=== PATIENT | female | born 1975 | race Caucasian/White ===

== ENCOUNTER → 2020-05-14 00:27 | Outpatient (CLI) | payer OTHER, SELFPAY ==
[2020-05-14 21:18] LABS: SARS-CoV-2 RNA PCR Negative
== END ==
PROVIDERS: PCP Family Medicine; Visit Provider Internal Medicine Critical Care Medicine
DX: Z20.822 Contact with and (suspected) exposure to COVID-19 (principal)
CPT/HCPCS: C9803; U0003; U0005

== ENCOUNTER 2020-05-27 14:56 | Outpatient (CLI) | payer OTHER, SELFPAY ==
--- NOTE | ~2020-05-27 | MM_ITS ---
EXAMINATION: MM screening [facility] BI w nathaniel HISTORY: Screening TECHNIQUE: Craniocaudal and mediolateral oblique 3-D tomosynthesis images were obtained and synthetic 2-D images were generated. CAD analysis was submitted and interpreted. COMPARISON: Comparison to multiple prior studies sequentially, with oldest reviewed study dated 11/2017. BREAST PARENCHYMAL COMPOSITION: There are scattered areas of fibroglandular density. FINDINGS: There is no evidence of suspicious mass, calcification, or architectural distortion to sugg est malignancy in either breast. There has been no suspicious interval change. IMPRESSION: 1. No mammographic evidence of malignancy. 2. Recommend routine screening mammography in one year. BI-RADS Category 1: Negative Reviewed, dictated and finalized at location A. 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
== END 2020-05-27 14:57 | disposition home or self-care (01) ==
LOC: ANHIMG 14:58
PROVIDERS: PCP Family Medicine; Visit Provider Physician Assistant
DX: Z12.31 Encounter for screening mammogram for malignant neoplasm of breast (principal)
CPT/HCPCS: 77063; 77067

== ENCOUNTER 2020-06-24 09:18 | Outpatient (CLI) | payer OTHER, SELFPAY ==
--- NOTE | 2020-07-12 17:36 | WPDHOMESLEEP ---
Sleep Study - Home Unattended Date of Study: 06/24/20 Ordering Provider: Bret King PA-C Interpreting Provider: Kelly Álvarez MD Home Sleep Study Type: Apnea Link Air Height: 1.6 m Weight: 76.657 kg Body Mass Index: 29.9 Neck Circumference (inches): 14.25 [place]: 1 Reason for Sleep Study Non-restorative sleep, night time awakenings, hypersomnolence Sleep History Mallory Licea is a 44 year old female with nonrestorative sleep. She wakes at night often, and struggles to return to sleep. Even with sufficient amounts of sleep, she never feels rested. This has been a problem at least since she had her third child 8 years ago. There is a family history of sleep problems with both parents using CPAP. She occasionally snores, occasionally this is loud enough that other people complain about it. She rarely awakens at night with heartburn, belching or coughing. She occasionally awakens at night feeling short of breath. She frequently has trouble sleep with a cold. She occasionally wakes up gasping for breath during the night. She occasionally has breathing problems at night observed by others. She frequently sweats excessively night. She occasionally notices her heart pounding or beating irregularly at night. She rarely falls asleep during the day. She does not fall asleep involuntarily or while driving. She does not have loss of muscle tone was strong emotion. She does not have daytime difficulties due to excessive sleepiness. 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 She does not feel paralyzed on waking or falling asleep. she does not have vivid dreamlike scenes upon awakening or falling asleep. She is not afraid to go to sleep. She frequently has nightmares. She occasionally remembers her dreams. She frequently has racing thoughts. She occasionally feels sad or depressed. She frequently has anxiety. She frequently has muscular tension and notices parts of her body jerking. She occasionally kicks at night. She occasionally has crawling and aching feelings in her legs. She occasionally has leg pain at night. She occasionally has morning jaw pain. She rarely grinds her teeth at night. She occasionally has bothered by pain during the day. She rarely is awakened by pain at night. She occasionally wakes up feeling stiff in the morning with sore achy muscles. She rarely awakens with pain in the neck and spine. She has fatigue, frequent memory problems and frequent morning headaches. Her normal bedtime is 10:00 p.m. falling asleep within 10-15 minutes waking 5 or more times at night to go to the bathroom. If she has difficulty falling asleep she plays a game on her phone. It often takes 15-20 minutes for to to return to sleep. She does not take naps. A short nap is not refreshing. She is drowsy for 3 hours or longer. She feels better in the morning compared to other times of day. Habits: Never smoked tobacco. Caffeine daily. Alcohol : once every few weeks. [facility] Past Medical History Medical History (Updated 07/12/20 @ 19:40 by Kelly Álvarez MD) Asthma Migraine, unspecified, not intractable, without status migrainosus Family History Family History (Updated 07/12/20 @ 19:08 by Kelly Álvarez MD) Grandparent Family history of malignant neoplasm of breast Mother Obstructive sleep apnea Father Obstructive sleep apnea Other Hypertension Social History Social History Smoking status: Never smoker Alcohol intake: current Medications Home Medications Medication Instructions Recorded Confirmed Type hydrocortisone acetate [Anusol-HC] 25 mg RECTAL BID #12 each 03/18/19 06/27/20 Rx tramadol 50 mg tablet 50 mg PO Q6H PRN #30 tablet 11/27/19 06/27/20 Rx sumatriptan succinate 100 mg tablet See Rx Instructions PO .COMPLEX #9 01/09/20 06/27/20 Rx tablet topiramate 25 mg tablet 50 mg PO BID #120 tablet 05/20/20 06/27/20 Rx
[2020-07-12 17:39] VITALS: BMI 29.9
== END 2020-06-24 09:19 | disposition home or self-care (01) ==
LOC: ANHCSM 09:18
PROVIDERS: PCP Family Medicine; Visit Provider Physician Assistant
DX: G47.10 Hypersomnia, unspecified (principal); Z79.899 Other long term (current) drug therapy; R06.83 Snoring; R53.83 Other fatigue
CPT/HCPCS: 95806

== ENCOUNTER 2020-06-27 15:44 | Outpatient (CLI) | payer OTHER, SELFPAY ==
--- NOTE | ~2020-06-27 | XR_ITS ---
EXAMINATION: XR chest 2V 06/27/2020 15:57 INDICATION: Shortness of breath and chest pain. Asthma. PROCEDURE: 2 view chest COMPARISON: No prior studies for comparison. FINDINGS: Left perihilar infiltrates, suspicious for pneumonia. The cardiomediastinal silhouette is w ithin normal limits. There are no pleural effusions. There is no pneumothorax suspected. IMPRESSION: 1: Subtle left perihilar infiltrates, suspicious for pneumonia.. Reviewed, dictated and finalized at location B.
== END 2020-06-27 15:45 | disposition home or self-care (01) ==
LOC: ANHIMG 15:49
PROVIDERS: PCP Family Medicine; Visit Provider Physician Assistant
DX: R06.02 Shortness of breath (principal)
CPT/HCPCS: 71046

== ENCOUNTER 2020-07-03 12:00 | Outpatient (CLI) | payer OTHER, SELFPAY ==
--- NOTE | ~2020-07-03 | XR_ITS ---
XR chest 2V DATE: 07/03/2020 12:18 INDICATION: Increased shortness of breath. Pneumonia. TECHNIQUE: PA and lateral views COMPARISON: 06/27/2020 PA and lateral chest FINDINGS: Normal heart size. No hilar or mediastinal enlargement. No pulmonary infiltrate or consolid ation, pleural effusion or pulmonary vascular congestion or pneumothorax. Mild thoracic dextroscolios is. IMPRESSION: No active cardiopulmonary disease Reviewed, dictated and finalized at location A.
== END 2020-07-03 12:01 | disposition home or self-care (01) ==
PROVIDERS: PCP Family Medicine; Visit Provider Family Medicine
DX: J18.9 Pneumonia, unspecified organism (principal)
CPT/HCPCS: 71046

== ENCOUNTER 2020-07-16 14:35 | Emergency (ER) | payer OTHER, SELFPAY ==
--- NOTE | ~2020-07-16 | XR_ITS ---
EXAMINATION: XR wrist RT min 3V DATE: 07/16/2020 15:16 INDICATION: Right wrist pain. Fall 2 weeks ago. TECHNIQUE: 4 views of right wrist were obtained. COMPARISON: None. FINDINGS: Bone alignment is normal. No fracture. Lunate is type II. There are subchondral cysts in th e proximal hamate. IMPRESSION: 1. 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 Reviewed, dictated and finalized at location B.
[2020-07-16 14:45] VITALS: BP 120/81; PULSE 68; RESP 16; TEMP 36.4; O2SAT 99
--- NOTE | 2020-07-16 14:49 | ED.UPPEXIN ---
HPI - Extremity Injury (Upper) General Chief Complaint: Extremity Injury, Upper Stated Complaint: . Time Seen by Provider: 07/16/20 15:03 Source: patient and RN notes reviewed Mode of arrival: ambulatory Limitations: no limitations History of Present Illness HPI narrative: 44-year-old female presents concern for right wrist pain. Reports 2 weeks ago she fell injuring her wrist below the fifth digit. Reports she is been using ice and Tylenol with little relief. Reports pain with range of motion, palpation. She denies swelling, deformity, decreased range of motion, decreased pain, decreased sensation.. Reports pain has not been improving over the last 2 weeks Related Data Home Medications Medication Instructions Recorded Confirmed topiramate 50 mg PO DAILY 07/16/20 07/16/20 Allergies Allergy/AdvReac Type Severity Reaction Status Date / Time hydrocodone Allergy Mild Nausea and Verified 07/16/20 14:59 Vomiting sulfamethoxazole Allergy Mild Rash Verified 07/16/20 14:59 trimethoprim Allergy Mild Rash Verified 07/16/20 14:59 Penicillins Allergy Unknown Rash Verified 07/16/20 14:59 Sulfa (Sulfonamide Allergy Unknown Rash Verified 07/16/20 14:59 Antibiotics) sulfamethizole Allergy Unknown Rash Verified 07/16/20 14:59 Review of Systems Review of Systems: Narrative: CONSTITUTIONAL: Denies malaise, chills, sweats, or fever. SKIN: Denies lacerations, abrasions MUSCULOSKELETAL: Reports right wrist pain NEUROLOGIC: Denies numbness, weakness All systems reviewed & are unremarkable except as noted in HPI and below PMFSH Past Medical History Medical History (Updated 07/16/20 @ 15:22 by Lisa Diamond NP) Asthma Migraine, unspecified, not intractable, without status migrainosus Family History Family History (Updated 07/12/20 @ 19:08 by Kelly Álvarez MD) Grandparent Family history of malignant neoplasm of breast Mother Obstructive sleep apnea Father Obstructive sleep apnea Other Hypertension Social History Social History Smoking status: Never smoker Alcohol intake: current Comments At time of signature, agree with nursing past medical, surgical, social and family history. There is no relevant family history pertinent to the presenting complaint Exam Narrative: Exam Narrative: GENERAL: Well-appearing, well-nourished, and in no acute distress. HEAD: Normocephalic, atraumatic. EYES: PERRLA, conjunctivae clear NECK: Supple. CHEST: Speaks in full sentences. No respiratory distress. HEART: Regular rate and rhythm. Normal and equal peripheral pulses. EXTREMITIES: Right wrist, hand, digits have normal strength and sensation, normal range of motion. No edema or ecchymosis. 5/5 strength with wrist and digit flexion and extension. Normal sensation with sensitivity to light touch and pain. Mild lateral wrist tenderness. No open wounds, no skin tenting, no devitalized tissue or atrophy, no trophic changes, no obvious deformity, alignment normal, nearby joints and structures intact. Distal pulses palpable and equal bilaterally, skin warm, dry, pink. Capillary refill less than 3 seconds. SKIN: Warm, dry, no rash. NEURO: Alert and oriented x3. PSYCH: Normal mood and affect Course Course Emergency Course: Patient is aware of diagnosis, understands and agrees to treatment plan. Anticipatory guidance given. Patient agrees to follow-up as directed and is aware of reasons to seek care at the emergency department. Portions of this record may have been created with voice recognition software Vital Signs Vital signs: Vital Signs Temperature 97.6 F 07/16/20 14:45 Pulse Rate 68 07/16/20 14:45 Respiratory Rate 16 07/16/20 14:45 Blood Pressure 120/81 07/16/20 14:45 Pulse Oximetry 99 07/16/20 14:45 Temperature 97.6 F 07/16/20 14:45 Pulse Rate 68 07/16/20 14:45 Respiratory Rate 16 07/16/20 14:45 Blood Pressure 120/81
== END 2020-07-16 15:30 | disposition home or self-care (01) ==
PROVIDERS: Emergency Provider Nurse Practitioner; PCP Family Medicine
DX: M25.531 Pain in right wrist (principal); J45.909 Unspecified asthma, uncomplicated
CPT/HCPCS: 73110; 99213; G0463

== ENCOUNTER 2020-08-29 10:37 | Outpatient (CLI) | payer OTHER, SELFPAY ==
--- NOTE | ~2020-08-29 | XR_ITS ---
EXAMINATION: XR chest 2V EXAM DATE: 08/29/2020 10:51 INDICATION: Shortness of breath, recent pneumonia. History of asthma. TECHNIQUE: Frontal and lateral projections of the chest obtained and reviewed. Comparison is made to prior examination from 07/03/2020. FINDINGS: The lungs are clear. There are no pleural effusions. The cardiomediastinal silhouette is within normal limits. There is no pneumothorax suspected. The bones and soft tissues are unremarkab le. IMPRESSION: Normal chest x-ray exam. Reviewed, dictated and finalized at location B. IMPRESSION: Normal chest x-ray exam.
== END 2020-08-29 10:38 | disposition home or self-care (01) ==
LOC: ANHIMG 10:41
PROVIDERS: PCP Family Medicine; Visit Provider Physician Assistant
DX: R06.02 Shortness of breath (principal)
CPT/HCPCS: 71046

== ENCOUNTER 2021-04-12 10:32 | Emergency (ER) | payer OTHER, SELFPAY ==
--- NOTE | ~2021-04-12 | XR_ITS ---
EXAMINATION: XR chest 1V portable 04/12/2021 11:21 INDICATION: Shortness of breath and cough. Covid. PROCEDURE: AP portable chest COMPARISON: No prior studies for comparison. FINDINGS: The lungs are clear. The cardiomediastinal silhouette is within normal limits. There are no pleural effusions. There is no pneumothorax suspected. IMPRESSION: 1: NO ACUTE CARDIOPULMONARY DISEASE. Reviewed, dictated and finalized at location A. 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
[2021-04-12 10:45] VITALS: BP 119/74; PULSE 78; RESP 20; TEMP 36.7; O2SAT 98
--- NOTE | 2021-04-12 11:07 | ED.SOB ---
HPI - SOB/Dyspnea General Chief Complaint: Shortness of Breath/Dyspnea Stated Complaint: covid + 12 days ago, SOB Time Seen by Provider: 04/12/21 11:05 Source: patient Mode of arrival: ambulatory Limitations: no limitations History of Present Illness HPI Narrative: Patient is a 45-year-old female complaining of shortness of breath, accompanied by cough, productive, clear sputum that started today. Patient states that she tested positive for COVID 12 days ago, with symptoms of cough, shortness of breath, body aches, fever, was feeling better this past week, but today her shortness of breath and cough became worse. Patient denies any chest pain, abdominal pain, nausea, vomiting, diarrhea, diaphoresis, fever or chills. Related Data Home Medications Medication Instructions Recorded Confirmed topiramate 50 mg PO DAILY 07/16/20 09/02/20 Allergies Allergy/AdvReac Type Severity Reaction Status Date / Time hydrocodone Allergy Mild Nausea and Verified 09/02/20 09:58 Vomiting sulfamethoxazole Allergy Mild Rash Verified 09/02/20 09:58 trimethoprim Allergy Mild Rash Verified 09/02/20 09:58 Penicillins Allergy Unknown Rash Verified 09/02/20 09:58 Sulfa (Sulfonamide Allergy Unknown Rash Verified 09/02/20 09:58 Antibiotics) sulfamethizole Allergy Unknown Rash Verified 09/02/20 09:58 Review of Systems Review of Systems: All systems reviewed & are unremarkable except as noted in HPI and below Constitutional: Constitutional: Denies body ache(s), Denies chills, Denies excessive sweating, Denies fatigue, Denies fever(s), Denies headache(s), Denies lethargy, Denies malaise, Denies weakness and Denies weight loss Eyes: Eyes: Denies blurry vision, Denies change in vision and Denies loss of vision ENT: Denies dizziness, Denies ear discharge, Denies headache(s), Denies lip swelling, Denies epistaxis, Denies nasal congestion, Denies neck pain, Denies throat swelling and Denies tongue swelling Cardiovascular: Cardiovascular: Denies chest pain, Denies chest pain at rest, Denies chest pain with activity, Denies diaphoresis, Denies rapid heart rate, Denies edema, Denies irregular heart rhythm, Denies lightheadedness and Denies palpitations Respiratory: Respiratory: Denies chest congestion and Denies hemoptysis Gastrointestinal: Gastrointestinal: Denies abdominal pain, Denies melena, Denies hematochezia, Denies diarrhea, Denies nausea, Denies vomiting and Denies hematemesis Musculoskeletal: Musculoskeletal: Denies abnormal gait, Denies deformity, Denies joint swelling, Denies limited range of motion, Denies neck pain and Denies numbness Neurologic: Denies Abnormal speech present, Denies abnormal gait, Denies confusion, Denies dizziness, Denies headache(s), Denies focal weakness, Denies loss of vision, Denies numbness, Denies Other visual disturbances, Denies Sensory deficit (Neuro) and Denies weakness Psychiatric: Psychiatric: Denies confusion, Denies depression, Denies auditory hallucinations, Denies homicidal ideation and Denies suicidal ideation Endocrine: Endocrine: Denies cold intolerance, Denies excessive sweating, Denies fatigue, Denies heat intolerance and Denies palpitations Hematologic/Lymphatic: Hematologic/Lymphatic: Denies easy bleeding and Denies easy bruising Allergic/Immunologic: Allergic/Immunologic: Denies lip swelling, Denies throat swelling and Denies tongue swelling PMFSH Past Medical History Medical History Asthma Migraine, unspecified, not intractable, without status migrainosus Family History Family History Grandparent Family history of malignant neoplasm of breast Mother Obstructive sleep apnea Father Obstructive sleep apnea Other Hypertension Social History Social History Alcohol intake: current Exam Const: General: cooperative, heal
--- NOTE | 2021-04-12 11:11 | ECG_ITS ---
Measurements Intervals [place] Rate: 69 P: 56 [place]: 199 QRS: 54 QRSD: 94 T: 55 QT: 364 QTc: 390 Interpretive Statements SINUS RHYTHM INCOMPLETE RIGHT BUNDLE BRANCH BLOCK LOW QRS VOLTAGE IN PRECORDIAL LEADS BORDERLINE ECG Electronically Signed On 04-12-2021 14:13:44 APPLIQUER ZIGZAG by Manuel Jones D.O.
[2021-04-12 11:37] LABS: Basophils Percent Auto 0.8 % (0.2-1.2); Eosinophils Absolute Auto 0.1 K/mm3 (0-0.3); Eosinophils Percent Auto 2.7 % (0-4.4); Hematocrit 42.2 % (37.0-47.0); Hemoglobin 14.5 g/dL (12.0-15.0); Immature Granulocyte Absolute 0.02 K/mm3 (0.00-0.031); Immature Granulocyte Percent A 0.4 % (0-0.5); Lymphocytes Absolute Auto 2.42 K/mm3 (0.9-3.2); Lymphocytes Percent Auto 47.1 % (18.3-44.2); Mean Corpuscular HGB Conc 34.4 g/dl (32-36); Mean Corpuscular Hemoglobin 30.5 pg (26-34); Mean Corpuscular Volume 88.7 fl (80-100); Mean Platelet Volume 9.7 fl (7.4-10.4); Monocytes Absolute Auto 0.4 K/mm3 (0.1-0.6); Monocytes Percent Auto 8.2 % (2.6-8.5); Neutrophils Absolute Auto 2.1 K/mm3 (1.3-6.7); Neutrophils Percent Auto 40.8 % (45.5-73.1); Platelet Count Result 348 k/mm3 (150-375); Red Blood Count 4.76 M/mm3 (4.2-5.4); Red Cell Distribution Width 12.5 % (11.5-14.5); White Blood Count 5.1 K/mm3 (4.5-10.0)
[2021-04-12 11:49] LABS: Alanine Aminotransferase 40 U/L (4-35); Albumin Level 4.5 g/dL (3.5-5.1); Alkaline Phosphatase 78 U/L (38-126); Anion Gap 8 mmol/L (8-16); Aspartate Amino Transferase 32 U/L (14-36); Bilirubin,Total 0.3 mg/dL (0.2-1.3); Blood Urea Nitrogen 16 mg/dL (7-17); Calcium 9.1 mg/dL (8.4-10.2); Carbon Dioxide 24 mmol/L (22-30); Chloride 108 mmol/L (98-107); Estimated CRCL calculation 82 ml/min; Estimated Glomerular Filt Rate > 60; Glucose 89 mg/dL (65-110); Potassium 4.2 mmol/L (3.4-5.0); Sodium 140 mmol/L (137-145)
[2021-04-12 12:02] LABS: D Dimer 0.27 ug/mL (<0.48); NT Pro B Type Natriuretic Pept 124 pg/mL (5-100); Troponin I < 0.012 ng/mL (0.000-0.034)
[2021-04-12 14:15] VITALS: BP 132/74; PULSE 80; RESP 16; O2SAT 99
== END 2021-04-12 14:15 | disposition home or self-care (01) ==
PROVIDERS: Emergency Provider Emergency Medicine; PCP Family Medicine
DX: U07.1 COVID-19 (principal); J45.909 Unspecified asthma, uncomplicated; I45.10 Unspecified right bundle-branch block
CPT/HCPCS: 36415; 71045; 80053; 83880; 84484; 85025; 85380; 93005; 99284

== ENCOUNTER 2021-09-02 14:52 | Outpatient (CLI) | payer OTHER, SELFPAY ==
--- NOTE | ~2021-09-02 | MM_ITS ---
EXAMINATION: MM screening [facility] BI w nathaniel HISTORY: Screening mammogram TECHNIQUE: Craniocaudal and mediolateral oblique 3-D tomosynthesis images were obtained and synthetic 2-D images were generated. CAD analysis was submitted and interpreted. COMPARISON: 05/27/2020, 09/14/2018, 09/04/2017 BREAST PARENCHYMAL COMPOSITION: The breasts are almost entirely fatty. FINDINGS: There is no suspicious mass, calcification, or architectural distortion to suggest malignan cy in either breast. There has been no suspicious interval change. IMPRESSION: 1. No mammographic evidence of malignancy. 2. Recommend routine screening mammography in one year. BI-RADS Category 1: Negative Reviewed, dictated and finalized at location A.
== END 2021-09-02 14:53 | disposition home or self-care (01) ==
PROVIDERS: PCP Family Medicine; Visit Provider Obstetrics & Gynecology Gynecology
DX: Z12.31 Encounter for screening mammogram for malignant neoplasm of breast (principal)
CPT/HCPCS: 77063; 77067

== ENCOUNTER 2021-12-13 08:43 | Emergency (ER) | payer OTHER, SELFPAY ==
[2021-12-13 08:50] VITALS: BP 142/61; PULSE 87; RESP 16; TEMP 36.7; O2SAT 98
--- NOTE | 2021-12-13 08:52 | ED.URI ---
HPI - URI/Sore Throat General Stated Complaint: Sore Throat, Cough Time Seen by Provider: 12/13/21 08:55 Source: patient Mode of arrival: ambulatory Limitations: no limitations History of Present Illness HPI Narrative: Ms. Licea is a 45-year-old female patient presenting to the clinic today with complaints of runny nose, productive cough, sore throat, congestion, and losing voice x1 week. She reports that all of her family members are having the same illness. She has tested twice for COVID and has been negative both times. She does have a history of asthma. Reports having a productive cough with some yellowish-brown phlegm. She denies any fever or chills. She denies being a smoker. She denies being short of breath or having any chest pain. Related Data Allergies Allergy/AdvReac Type Severity Reaction Status Date / Time hydrocodone Allergy Mild Nausea and Verified 11/10/21 13:05 Vomiting sulfamethoxazole Allergy Mild Rash Verified 11/10/21 13:05 trimethoprim Allergy Mild Rash Verified 11/10/21 13:05 Penicillins Allergy Unknown Rash Verified 11/10/21 13:05 Sulfa (Sulfonamide Allergy Unknown Rash Verified 11/10/21 13:05 Antibiotics) sulfamethizole Allergy Unknown Rash Verified 11/10/21 13:05 Review of Systems Review of Systems: Pertinent positives per HPI. Patient denies any fever, chills, rash, headache, visual changes, dizziness, cough, runny nose, sore throat, shortness of breath, chest pain, palpitations, nausea, vomiting, diarrhea, constipation, abdominal pain, or any urinary issues. [facility] Past Medical History Medical History Asthma delivery delivered Migraine, unspecified, not intractable, without status migrainosus Surgical History Surgical History History of ankle surgery Family History Family History Grandparent Family history of malignant neoplasm of breast Mother Obstructive sleep apnea Father Obstructive sleep apnea Other Hypertension Social History Social History Smoking status: Never smoker Second hand tobacco smoke exposure: No Alcohol intake: current Drinks per week: 1 Substance use type: does not use Comments At the time of my signature, I reviewed and agree with the nursing past medical, surgical, social, and family history. There is no relevant family history pertinent to the patient complaint. Exam Narrative: General: Well-developed, overweight, in no apparent distress Head: Normocephalic, atraumatic Eyes: Pupils equally round and reactive to light bilaterally, EOM intact, sclera and conjunctive clear, no discharge, lids normal Ears: TMs intact and clear, ear canals clear, no drainage, grossly hearing normal. Nose: Nares patent, clear nasal discharge, mild inflammation, no sinus tenderness. Mouth: Oropharynx without lesions or masses, good dentition, MMM. Postnasal drip Neck: Supple, trachea midline, no enlargement of anterior or posterior cervical nodes, no thyroid masses or goiter palpable. Cardio: Regular rate and rhythm, s1 and s2 normal, no murmur appreciated. Resp: Clear to auscultation bilaterally anteriorly and posteriorly, no rhonchi, rales, wheezing or rubs Course Course Emergency Course: Portions of this record may have been created with voice recognition software. Level of Care: Express Care Visit Vital Signs Vital signs: Vital Signs Temperature 36.7 C 12/13/21 08:50 Pulse Rate 87 12/13/21 08:50 Respiratory Rate 16 12/13/21 08:50 Blood Pressure 142/61 H 12/13/21 08:50 Pulse Oximetry 98 12/13/21 08:50 Oxygen Delivery Room Air 12/13/21 08:50 Temperature 36.7 C 12/13/21 08:50 Pulse Rate 87 12/13/21 08:50 Respiratory Rate 16 12/13/21 08:50 Blood Pres
== END 2021-12-13 09:02 | disposition home or self-care (01) ==
PROVIDERS: Emergency Provider Nurse Practitioner Family; PCP Emergency Medicine
DX: J06.9 Acute upper respiratory infection, unspecified (principal); J45.909 Unspecified asthma, uncomplicated
CPT/HCPCS: 99213; G0463

== ENCOUNTER 2022-03-11 01:58 | Day surgery (SDC) | payer OTHER, SELFPAY ==
[2022-02-27 14:22] VITALS: BMI 35.5
--- NOTE | 2022-03-10 17:08 | PM.HPGS ---
History of Present Illness History of Present Illness Consent: Risks, benefits, and alternatives have been discussed and questions answered. Patient agrees to proceed with procedure. Chief complaint: neoplasm screening Narrative: Mallory Licea is a 46 year old female was referred for colon cancer screening. Review of Systems Review of Systems: All systems reviewed & are unremarkable except as noted in HPI and below PMFSH Past Medical History Medical History Asthma delivery delivered Migraine, unspecified, not intractable, without status migrainosus Surgical History Surgical History History of ankle surgery Family History Family History Grandparent Family history of malignant neoplasm of breast Mother Obstructive sleep apnea Father Obstructive sleep apnea Other Hypertension Social History Social History Smoking status: Never smoker Second hand tobacco smoke exposure: No Alcohol intake: current Drinks per week: 1 Alcohol use details: 2x monthly Substance use type: does not use Living arrangements: with family Spiritual care concerns: No Meds Home Medications and Allergies Home Medications Medication Instructions Recorded Confirmed Type sumatriptan succinate 100 mg tablet 100 mg PO DIRECTED PRN Migraine 12/13/21 03/11/22 History Headache topiramate 50 mg tablet 50 mg PO BID #180 tabs 01/07/22 03/11/22 Rx albuterol sulfate 90 mcg/actuation 2 inh inhalation Q4H PRN Shortness 02/27/22 03/11/22 History aerosol inhaler (ProAir HFA) Of Breath mometasone-formoterol HFA 100 2 puff inhalation Q12H PRN other 02/27/22 03/11/22 History mcg-5 mcg/actuation aerosol inhaler (Dulera) Allergies Allergy/AdvReac Type Severity Reaction Status Date / Time sulfamethoxazole Allergy Mild Rash Verified 03/11/22 09:14 trimethoprim Allergy Mild Rash Verified 03/11/22 09:14 Penicillins Allergy Unknown Rash Verified 03/11/22 09:14 Sulfa (Sulfonamide Allergy Unknown Rash Verified 03/11/22 09:14 Antibiotics) sulfamethizole Allergy Unknown Rash Verified 03/11/22 09:14 Exam Const: General: alert Orientation/consciousness: patient oriented x3 Resp: Auscultation: clear to auscultation bilaterally Cardio: Rhythm: regular rhythm GI: GI Palp: Yes Soft to palpation and No Tenderness to palpation present (GI) Neuro: General: patient oriented x3 Assessment and Plan Assessment and plan (1) Colon cancer screening: Code(s): Z12.11 - Encounter for screening for malignant neoplasm of colon Status: Acute Assessment and Plan: Colonoscopy with possible biopsy or polypectomy or cautery or injection of substances.
[2022-03-11 09:19] VITALS: BP 140/64; PULSE 83; RESP 18; TEMP 36.1; O2SAT 100; BMI 38.4
[2022-03-11] MEDS: LACTATED RINGERS 1,000 ML 150 ML IV CONT (09:31)
--- NOTE | 2022-03-11 09:34 | WPDANESEPPF ---
Anes - Initial Pre Proc Eval Procedure: Operation Date: 03/11/22 10:30 Proposed Procedures p Screening Colonoscopy - Pool Miller MD Date/Time: 03/11/22 09:34 Surgeon: Pool Miller MD Pre Op Diagnosis: neoplasm screening Patient Data Age: 46 Gender: F Height: 1.6 m Weight: 98.4 kg Last Vital Signs Temp 97.0 F L 03/11/22 09:19 Pulse 83 03/11/22 09:19 Resp 18 03/11/22 09:19 BP 140/64 03/11/22 09:19 Pulse Ox 100 03/11/22 09:19 O2 Del Method Room Air 03/11/22 09:19 Allergies Allergy/AdvReac Type Severity Reaction Status Date / Time sulfamethoxazole Allergy Mild Rash Verified 03/11/22 09:14 trimethoprim Allergy Mild Rash Verified 03/11/22 09:14 Penicillins Allergy Unknown Rash Verified 03/11/22 09:14 Sulfa (Sulfonamide Allergy Unknown Rash Verified 03/11/22 09:14 Antibiotics) sulfamethizole Allergy Unknown Rash Verified 03/11/22 09:14 Home Medications Medication Instructions Recorded Confirmed Type sumatriptan succinate 100 mg tablet 100 mg PO DIRECTED PRN Migraine 12/13/21 03/11/22 History Headache topiramate 50 mg tablet 50 mg PO BID #180 tabs 01/07/22 03/11/22 Rx albuterol sulfate 90 mcg/actuation 2 inh inhalation Q4H PRN Shortness 02/27/22 03/11/22 History aerosol inhaler (ProAir HFA) Of Breath mometasone-formoterol HFA 100 2 puff inhalation Q12H PRN other 02/27/22 03/11/22 History mcg-5 mcg/actuation aerosol inhaler (Dulera) Patient hx anesthesia problems: none Family hx anesthesia problems: none Results Review: All pre-operative results and documents have been reviewed as part of the pre-operative evaluation. [facility] Past Medical History Medical History Asthma delivery delivered Migraine, unspecified, not intractable, without status migrainosus Surgical History Surgical History History of ankle surgery Family History Family History Grandparent Family history of malignant neoplasm of breast Mother Obstructive sleep apnea Father Obstructive sleep apnea Other Hypertension Social History Social History Smoking status: Never smoker Second hand tobacco smoke exposure: No Alcohol intake: current Drinks per week: 1 Alcohol use details: 2x monthly Substance use type: does not use Living arrangements: with family Spiritual care concerns: No Anes - Eval Final PreProcedure Day of Procedure 03/11/22 09:34 Patient weight: obese Heart: regular rate and rhythm Lungs: clear to auscultation Airway: Mallampati scale class II Neurological: alert and oriented Last oral intake: >/= 8 hours ASA classification: II Emergent: no Anesthetic plan: proceed Anesthesia type and monitoring: general GIVS and standard monitoring Results Review: All pre-operative results and documents have been reviewed as part of the pre-operative evaluation. Informed Consent: The patient's anesthetic plan and its attendant risks and benefits were discussed with the patient/family/POA. Questions were solicited and answers provided to the satisfaction of the patient/family/POA.
[2022-03-11 10:15] VITALS: BP 146/79; PULSE 68; RESP 22; O2SAT 97
[2022-03-11 10:25] VITALS: BP 119/60; PULSE 75; RESP 24; O2SAT 97
[2022-03-11 10:35] VITALS: BP 116/74; PULSE 68; RESP 21; O2SAT 100
== END 2022-03-11 10:41 | disposition home or self-care (01) ==
PROVIDERS: PCP Emergency Medicine; Visit Provider Internal Medicine Gastroenterology
PROC: 0DJD8ZZ Inspection of Lower Intestinal Tract, Via Natural or Artificial Opening Endoscopic (ICD-10-PCS; CPT 45378; principal; 2022-03-11 10:30)
DX: Z12.11 Encounter for screening for malignant neoplasm of colon (principal); J45.909 Unspecified asthma, uncomplicated; Z79.51 Long term (current) use of inhaled steroids; E66.9 Obesity, unspecified; Z68.38 Body mass index [BMI] 38.0-38.9, adult
CPT/HCPCS: 45378; J2704; J7120

== ENCOUNTER 2022-07-21 08:01 | Outpatient (CLI) | payer OTHER, SELFPAY ==
--- NOTE | 2022-07-31 17:27 | WPDHOMESLEEP ---
Sleep Study - Home Unattended Date of Study: 07/21/22 Ordering Provider: Amy Mason DO Interpreting Provider: Kelly Álvarez MD Home Sleep Study Type: Apnea Link Air Height: 1.6 m Weight: 97.976 kg Body Mass Index: 38.2 Neck Circumference (inches): 16 [place]: 7 PMFSH Past Medical History Medical History Asthma delivery delivered Migraine, unspecified, not intractable, without status migrainosus Surgical History Surgical History History of ankle surgery Family History Family History Grandparent Family history of malignant neoplasm of breast Mother Obstructive sleep apnea Father Obstructive sleep apnea Other Hypertension Social History Social History Smoking status: Never smoker Second hand tobacco smoke exposure: No Alcohol intake: current Drinks per week: 1 Alcohol use details: 2x monthly Substance use type: does not use Lack of Transportation: No Lack of Food: Never True Current Housing: I Have Housing Concerned About Future Housing: No Difficulty Paying Gas/Electric Bills: No Difficulty Paying for Meds: No Currently Unemployed: No Education: Bachelor's Degree Difficulty w/ Childcare or Family Care: No Living arrangements: with family Spiritual care concerns: No Medications Home Medications Medication Instructions Recorded Confirmed Type albuterol sulfate 90 mcg/actuation 2 inh inhalation Q4H PRN Shortness 02/27/22 06/17/22 History aerosol inhaler (ProAir HFA) Of Breath mometasone-formoterol HFA 100 2 puff inhalation Q12H PRN other 02/27/22 06/17/22 History mcg-5 mcg/actuation aerosol inhaler (Dulera) eszopiclone 3 mg tablet (Lunesta) 3 mg PO QHS #1 tablet 06/17/22 06/17/22 Rx Assessment and Plan Data The data obtained during this sleep study is adequate for interpretation. Certification This sleep study has been reviewed by a board certified sleep medicine physician.
--- NOTE | 2022-08-11 18:57 | WPDHOMESLEEP ---
Sleep Study - Home Unattended Date of Study: 07/21/22 Ordering Provider: Amy Mason DO Interpreting Provider: Amy Mason DO Home Sleep Study Type: Apnea Link Air Height: 1.6 m Weight: 97.976 kg Body Mass Index: 38.2 Neck Circumference (inches): 16 [place]: 7 Reason for Sleep Study Snoring, unrefreshing sleep, nocturnal gasping Sleep History The patient is a 46-year-old female with asthma and migraines that had a sleep study ordered for evaluation of sleep apnea. The patient had a home sleep test a few years ago that was negative. Both of her parents have severe sleep apnea. The patient occasionally awakens from sleep short of breath. She occasionally awakens at night with heartburn, belching or cough. He frequently snores and is frequently loud enough others complain. He constantly has trouble breathing when she has a cold. He occasionally wakes up gasping for air throughout the night. He occasionally has breathing problems at night observed by herself or others. She rarely sweats excessively at night. She denies having heart palpitations or irregular heartbeats during the night. She denies falling asleep during the day and while driving. She denies sleep paralysis and cataplexy. She occasionally has trouble at school or work due to sleepiness. She frequently experiences vivid dreamlike scenes upon awakening or falling asleep. She denies feeling afraid of going to sleep. She frequently has nightmares and frequently remembers her dreams. She constantly has thoughts racing through the back of her mind. She occasionally feels sad or depressed. She frequently has anxiety. She frequently has muscular tension. He frequently notices parts of her body jerk. She rarely kicks during the night. She frequently has crawling and aching feelings in her legs and frequently has leg pain during the night. She frequently grinds her teeth during sleep and frequently has morning jaw pain. She is frequently bothered by pain during the day but rarely awakened by pain during the night. She frequently wakes up feeling stiff in the morning. She occasionally wakes up with sore or achy muscles. She frequently wakes up with pain in the neck, spine or of the joints. She goes to bed at 10:30 p.m. on weekdays and 11:00 p.m. on the weekends. It takes her 20-30 minutes to fall asleep. She wakes up through 4 times throughout the night to urinate mail listen to a body cast. He can take her 15 minutes up to several hours to fall back asleep. He wakes up at 6:30 a.m. on weekdays and at 7:00 a.m. on the weekends. She typically gets 5-6 hours of sleep per night. She will stay in bed for 20-30 minutes after waking up in the morning. He currently lives with her and 3 children. She does not consume any caffeinated beverages within 2 hours of bedtime. She will occasionally engage in physical exercise before bedtime. She will watch television before falling asleep. She will occasionally take naps in the afternoon or the evening but they are not refreshing. She consumes 32-48 oz of caffeinated beverage per day. She will have 1 Mabel per month. She denies tobacco and recreational drug use. [facility] Past Medical History Medical History Asthma delivery delivered Migraine, unspecified, not intractable, without status migrainosus Surgical History Surgical History History of ankle surgery Family History Family History Grandparent Family history of malignant neoplasm of breast Mother Obstructive sleep apnea Father Obstructive sleep apnea Other Hypertension Social History Social History Smoking status: Never smoker Second hand tobacco smoke exposure: No Alcohol intake: current
[2022-08-11 18:59] VITALS: BMI 38.2
== END 2022-07-22 10:33 | disposition home or self-care (01) ==
LOC: ANHCSM 08:02
PROVIDERS: PCP Emergency Medicine; Visit Provider Family Medicine
DX: G47.10 Hypersomnia, unspecified (principal); G47.9 Sleep disorder, unspecified; G25.81 Restless legs syndrome; J45.909 Unspecified asthma, uncomplicated
CPT/HCPCS: 95806

== ENCOUNTER 2022-08-19 08:31 | Outpatient (CLI) | payer OTHER, SELFPAY ==
[2022-08-19 13:10] LABS: Basophils Percent Auto 0.6 % (0.2-1.2); Eosinophils Absolute Auto 0.3 K/mm3 (0-0.3); Eosinophils Percent Auto 4.8 % (0-4.4); Hematocrit 44.8 % (37.0-47.0); Hemoglobin 14.6 g/dL (12.0-15.0); Immature Granulocyte Absolute 0.02 K/mm3 (0.00-0.031); Immature Granulocyte Percent A 0.3 % (0-0.5); Lymphocytes Absolute Auto 2.67 K/mm3 (0.9-3.2); Lymphocytes Percent Auto 42.7 % (18.3-44.2); Mean Corpuscular HGB Conc 32.6 g/dl (32-36); Mean Corpuscular Hemoglobin 28.9 pg (26-34); Mean Corpuscular Volume 88.5 fl (80-100); Mean Platelet Volume 10.3 fl (7.4-10.4); Monocytes Absolute Auto 0.4 K/mm3 (0.1-0.6); Monocytes Percent Auto 6.7 % (2.6-8.5); Neutrophils Absolute Auto 2.8 K/mm3 (1.3-6.7); Neutrophils Percent Auto 44.9 % (45.5-73.1); Platelet Count Result 338 k/mm3 (150-375); Red Blood Count 5.06 M/mm3 (4.2-5.4); Red Cell Distribution Width 13.2 % (11.5-14.5); White Blood Count 6.3 K/mm3 (4.5-10.0)
[2022-08-19 13:20] LABS: Anion Gap 8 mmol/L (8-16); Blood Urea Nitrogen 12 mg/dL (7-17); Calcium 8.8 mg/dL (8.4-10.2); Carbon Dioxide 25 mmol/L (22-30); Chloride 104 mmol/L (98-107); Estimated Glomerular Filt Rate > 60; Glucose 82 mg/dL (65-110); Potassium 4.1 mmol/L (3.4-5.0); Sodium 137 mmol/L (137-145)
== END 2022-08-19 08:32 | disposition home or self-care (01) ==
LOC: ANHGOSHLAB 08:32
PROVIDERS: PCP Emergency Medicine; Visit Provider Nurse Practitioner Family
DX: E66.9 Obesity, unspecified (principal); G25.81 Restless legs syndrome
CPT/HCPCS: 36415; 80048; 82728; 84443; 85025

== ENCOUNTER 2023-05-23 18:58 | Emergency (ER) | payer OTHER, SELFPAY ==
[2023-05-23 19:07] VITALS: BP 131/77; PULSE 85; RESP 16; TEMP 36.7; O2SAT 97
--- NOTE | 2023-05-23 19:12 | ED.URI ---
HPI - URI/Sore Throat General Chief Complaint: Upper Respiratory Infection Stated Complaint: upper respiratory issue Time Seen by Provider: 05/23/23 19:12 Source: patient Mode of arrival: ambulatory Limitations: no limitations History of Present Illness HPI Narrative: Patient is a 47-year-old female who presents with cough, wheezing, congestion for 4 days. Patient has a history of asthma and pneumonia. Patient COVID the end of March, and had a course of paxlovid. Symptoms mostly resolved but then worsened. Patient has been out of inhaler. Denies any fever, chills, nausea, vomiting, diarrhea. Related Data Home Medications Medication Instructions Recorded Confirmed rizatriptan 5 mg disintegrating See Rx Instructions .Route .COMPLEX 05/23/23 05/23/23 tablet Allergies Allergy/AdvReac Type Severity Reaction Status Date / Time Penicillins Allergy Mild Rash Verified 05/23/23 19:03 Sulfa (Sulfonamide Allergy Mild Rash Verified 05/23/23 19:03 Antibiotics) sulfamethizole Allergy Mild Rash Verified 05/23/23 19:03 sulfamethoxazole Allergy Mild Rash Verified 05/23/23 19:03 trimethoprim Allergy Mild Rash Verified 05/23/23 19:03 Review of Systems Review of Systems: All systems reviewed & are unremarkable except as noted in HPI and below Constitutional: Constitutional: Denies body ache(s), Denies chills, Denies fatigue, Denies fever(s), Denies headache(s), Denies malaise and Denies weakness Eyes: Eyes: Denies blurry vision, Denies itchy eyes and Denies loss of vision ENT: Denies otalgia, Denies headache(s), Reports nasal congestion, Denies sinus pain and Denies sore throat Cardiovascular: Cardiovascular: Denies chest pain, Denies irregular heart rhythm and Denies dyspnea Respiratory: Respiratory: Reports cough, Denies dyspnea and Reports wheezing Gastrointestinal: Gastrointestinal: Denies abdominal pain, Denies diarrhea, Denies nausea and Denies vomiting Musculoskeletal: Musculoskeletal: Denies back pain, Denies myalgias and Denies arthralgias Integumentary/Breasts: Skin/Breast: Denies pruritus and Denies rash Neurologic: Denies headache(s), Denies loss of vision and Denies weakness Psychiatric: Psychiatric: Reports no additional psychiatric complaints Endocrine: Endocrine: Denies fatigue Allergic/Immunologic: Allergic/Immunologic: Denies itchy eyes PMFSH Past Medical History Medical History Asthma delivery delivered Migraine, unspecified, not intractable, without status migrainosus Surgical History Surgical History History of ankle surgery Family History Family History Grandparent Family history of malignant neoplasm of breast Mother Obstructive sleep apnea Father Obstructive sleep apnea Other Hypertension Social History Social History Smoking status: Never smoker Second hand tobacco smoke exposure: No Alcohol intake: current Drinks per week: 1 Alcohol use details: 2x monthly Substance use type: does not use Lack of Transportation: No Lack of Food: Never True Current Housing: I Have Housing Concerned About Future Housing: No Difficulty Paying Gas/Electric Bills: No Difficulty Paying for Meds: No Currently Unemployed: No Education: Bachelor's Degree Difficulty w/ Childcare or Family Care: No Living arrangements: with family Spiritual care concerns: No Comments At time of signature, agree with nursing past medical, surgical, social and family history. There is no relevant family history pertinent to the presenting complaint. Exam Const: General: cooperative, healthy appearing, comfortable, no acute distress and well nourished Nutritional Appearance: well nourished Orientation/consciousness: patient oriented x3 Limitat
== END 2023-05-23 19:27 | disposition home or self-care (01) ==
PROVIDERS: Emergency Provider Nurse Practitioner Family; PCP Emergency Medicine
DX: J06.9 Acute upper respiratory infection, unspecified (principal); J45.909 Unspecified asthma, uncomplicated
CPT/HCPCS: 99213; G0463

== ENCOUNTER 2023-09-22 08:07 | Outpatient (CLI) | payer OTHER, SELFPAY ==
--- NOTE | ~2023-09-22 | MM_ITS ---
EXAMINATION: MM screening hao BI w nathaniel HISTORY: Screening mammogram TECHNIQUE: Craniocaudal and mediolateral oblique 3-D tomosynthesis images were obtained and synthetic 2-D images were generated. CAD analysis was submitted and interpreted. COMPARISON: 09/02/2021, 05/27/2020 BREAST PARENCHYMAL COMPOSITION:Not Dense. The breasts are almost entirely fatty FINDINGS: No suspicious mass, calcification, or architectural distortion are identified in either zackery ast to suggest malignancy. There has been no suspicious interval change. IMPRESSION: No mammographic evidence of malignancy. Recommend routine screening mammography in one year. BI-RADS Category 1: Negative Reviewed, dictated and finalized at location .
--- NOTE | ~2023-09-22 | DEXA_ITS ---
Bone Density Report Name: FAIZA HERRERA Age: 47 Sex: Female Ethnicity: White Date of : 1975 Indication: postmenopausal; history of glucocorticoids; asthma or emphysema; Referring Provider: TULIO, RHIANNA Study: Bone densitometry was performed. Exam Date: September 22, 2023 Accession number: [id number] Bone Density: Region BMD T-score Z-score Classification AP Spine(L1-L4) 0.903 -1.3 -0.8 Osteopenia Femoral Neck (Left) 0.766 -0.8 -0.2 Normal Total Hip (Left) 1.021 0.6 1.0 Normal Femoral Neck (Right) 0.704 -1.3 -0.8 Osteopenia Total Hip (Right) 1.020 0.6 1.0 Normal Total Hip Mean 1.020 0.6 1.0 Normal World Health Organization criteria for BMD impression classify patients as: Normal (T-score at or above -1.0), Osteopenia (T-score between -1.0 and -2.5), or Osteoporosis (T-score at or below -2.5). 10-year Fracture Risk(1): Major Osteoporotic Fracture 5.1% Hip Fracture 0.4% Reported Risk Factors: [place] (), Neck BMD=0.704, BMI=36.0, glucocorticoids (1) FRAX(R) Version 3.08. Fracture probability calculated for an untreated patient. Fracture probability may be lower if the patient has received treatment. Clinical Information Provided by Patient: Has taken Glucocorticoids Has the following medical conditions: Asthma or Emphysema Patient maximum height was 64.0 Menopause Age: 46 Drinks caffeinated beverages Onset of menses at age 11 Number of children 3 Impression: The patient has low bone mass, based on the Total Spine T-score. The patient has an estimated ten-year risk of hip fracture of 0.4% and an estimated ten-year risk of major fracture of 5.1%, based on the WHO FRAX algorithm. The patient has risk factors, including: history of glucocorticoid therapy. Discussion: BONE DENSITY IS LOW AT ONE OR MORE SKELETAL SITES. This patient's lowest T-score is low at one or more skeletal sites. It meets the World Health Organization's (WHO) criteria for ?low bone mass? (T-score between -1.0 and -2.5). The patient's 10-year risk of fracture as calculated by FRAX is less than the threshold where pharmacological therapy is recommended by the National Osteoporosis Foundation (NOF). However, all treatment decisions require clinical judgment and consideration of individual patient factors, including patient preferences, comorbidities, previous drug use, risk factors not captured in the FRAX model (e.g., frailty, falls, vitamin D deficiency, increased bone turnover, interval significant decline in bone density) and possible under or overestimation of fracture risk by FRAX. The patient should follow a healthful lifestyle (good nutrition with adequate calcium and vitamin D, and appropriate weight-bearing exercise). Follow-Up: Consider repeating this study in 2 to 3 years to
== END 2023-09-22 08:08 | disposition home or self-care (01) ==
PROVIDERS: PCP Emergency Medicine; Visit Provider Nurse Practitioner
DX: Z12.31 Encounter for screening mammogram for malignant neoplasm of breast (principal); M85.89 Other specified disorders of bone density and structure, multiple sites; Z78.0 Asymptomatic menopausal state; Z13.820 Encounter for screening for osteoporosis
CPT/HCPCS: 77063; 77067; 77080

== ENCOUNTER 2024-10-18 08:22 | Outpatient (CLI) | payer OTHER, SELFPAY ==
--- NOTE | ~2024-10-18 | MM_ITS ---
EXAMINATION: MM screening hao BI w nathaniel HISTORY: Screening TECHNIQUE: Craniocaudal and mediolateral oblique 3-D tomosynthesis images were obtained and synthetic 2-D images were generated. CAD analysis was submitted and interpreted. COMPARISON: Comparison to multiple prior studies sequentially, with oldest reviewed study dated 09/14. BREAST PARENCHYMAL COMPOSITION: The breasts are almost entirely fatty. FINDINGS: There is no evidence of suspicious mass, calcification, or architectural distortion to sug gest malignancy in either breast. IMPRESSION: 1. No mammographic evidence of malignancy. 2. Recommend routine screening mammography in one year. BI-RADS Category 1: Negative Reviewed, dictated and finalized at location B.
--- OUTSIDE RECORDS SUMMARY | 2024-10-18 08:26 | XMS_ITS | Clinical Summary ---
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 Role Phone Yoan Souza MD Primary Care Provider [phone] Social History Tobacco Use Types Packs/Day Years Used Date Smoking Tobacco: Never Assessed Comments Unknown Sex and Gender Information Value Date Recorded Sex Assigned at Not on file Legal Sex Female 6:12 PM CDT Gender Identity Not on file Sexual Orientation Not on file Plan of Treatment Health Maintenance Due Date Last Done Comments Cervical Cancer Screening Pa p Smear (Age 30 to 64) Every 3 Years 1976 Colorectal Cancer Screening Colonoscopy (10 Years) 1976 Annual Physical 12/27/1979 Hepatitis C 1994 DTaP, Tdap and Td Vaccines ( 1 - Tdap) 12/27/1995 Hepatitis B Vaccines (1 of 3 - 19+ 3-dose series) 12/27/1995 Cervical Cancer Screening Pa p with HPV Testing (Age 30 to 64) Every 5 Years 2006 Cervical Cancer Screening with HPV 2006 Mammogram Screening 2016 COVID-19 Vaccine (2023-2 5 season) 2023 Meningococcal B Vaccine Aged Out No l onger eligible based on patient's age to complete this topic Meningococcal Vaccine Aged Out No raciel donna eligible based on patient's age to complete this topic Pneumococcal Vaccine: Pediat rics (0 to 5 Years) and At-Risk Patients (6 to 49 Years) Aged Out No longer eligible b ased on patient's age to complete this topic RSV Immunizations Under 20 Months Aged Out No longer eligible based on patient's age to complete this topic Care Teams Optical 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
--- OUTSIDE RECORDS SUMMARY | 2024-10-18 08:26 | XMS_ITS | Clinical Summary ---
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 Gender Identity Not on file Sexual Orientation Not on file Plan of Treatment Health Maintenance Due Date Last Done Comments Hepatitis C Virus (HCV) Screening 1975 TdaP Immunization 1975 Hepatitis B Immunization (1 of 3 - 19+ 3-dose series) 12/27/1995 Pap Smear 1997 Cervical Cancer Screening (CCS) 2006 HPV/Cotest 2006 Discussion re Starting/Frequ ency of Mammograms 2016 Colonoscopy 2021 Colorectal Cancer Screening 2021 Influenza Immunization (#1) 2023 SARS-COV-2 Immunization ( season) 2023 Respiratory Syncytial Virus (RSV) Immunization (Adult) (1 - 1-dose 75+ series) 12/27/2051 Meningococcal Immunization (ACWY) Aged Out No longer eligible based on patient's age to complete this topic Pneumococcal Immunization Combined Aged Out No longer eligible based on patient's age to complete this topic Rotavirus Immunization Aged Out No lo nger eligible based on patient's age to complete this topic Insurance [employer] on file
== END 2024-10-18 08:23 | disposition home or self-care (01) ==
LOC: ANHIMG 08:24
PROVIDERS: PCP Nurse Practitioner Family; Visit Provider Obstetrics & Gynecology Gynecology
DX: Z12.31 Encounter for screening mammogram for malignant neoplasm of breast (principal)
CPT/HCPCS: 77063; 77067